=== PATIENT | female | born 1945 | race Caucasian/White ===

== ENCOUNTER 2016-11-18 11:12 | Emergency (ER) | payer MEDICARE, OTHER ==
[2016-11-18 11:30] VITALS: BP 143/83
[2016-11-18] MEDS ORDERED: ALBUTEROL SULFATE/IPRATROPIUM 3 ML NEBU IH ONE ×2 (12:10→12:17)
--- NOTE | 2016-11-18 12:16 | ERNOTE ---
Date of Service: 11/18/16 Time Seen by Provider: 11/18/16 11:39 Stated Complaint: LOSS OF BREATH X 2 MONTHS Presenting Symptoms:: cough Source: patient Exam Limitations: no limitations Immunizations: IMMUNIZATION HX Immunizations Up to Date Yes History of Influenza Vaccine Yes Hx Pneumococcal Vaccination Yes Allergies/Adverse Reactions: Allergies No Known Allergies Allergy (Verified 11/18/16 11:29) Home Medications: HOME MEDICATIONS Albuterol Sulfate [Ventolin HFA] 2 puff IH Q6H PRN 7 Days 11/18/16 [Last Taken Unknown] Amlodipine Besylate [Norvasc] 2.5 mg PO DAILY #30 tab 11/18/16 [Last Taken Unknown] Doxycycline Monohydrate 100 mg PO BID #20 tablet 11/18/16 [Last Taken Unknown] Prednisone [Deltasone] 20 mg PO BID #10 tablet 11/18/16 [Last Taken Unknown] - History of Present Ilness Narrative: Pt presents with chronic SOB as well as her finger tips turning blue in the cold. She has been having the finger tip problems for some time and it is much worse in the winter. Timing: constant, intermittent Severity: moderate Frequency/Possible Cause: Reports: chronic episodes Modifying Factors - Worsens: Reports: other - tobacco Associated Symptoms: Reports: cough, shortness of breath Review of Systems - Review of Systems Constitutional: Present: See HPI EYE: Present: no symptoms reported ENT: Present: no symptoms reported Respiratory: Present: shortness of breath, other - diminished breath sounds Cardiology: Present: no symptoms reported Gastrointestinal/Abdominal: Present: no symptoms reported Genitourinary: Present: no symptoms reported Musculoskeletal: Present: no symptoms reported Skin: Present: no symptoms reported Neurological: Present: no symptoms reported Endocrine: Present: no symptoms reported Hematologic/Lymphatic: Present: no symptoms reported, other - bluish finger tips Psych: Present: no symptoms reported - Patient's Past Medical History Patient History - Medical: Glaucoma Patient History - Cardiac/Respiratory: No pertinent hx, COPD Patient History - Cancer: No Hx of Cancer Patient History - Surgical Procedures: Cataracts - Social History Smoking Status: Current every day smoker Have you smoked in the past 12 months: Yes - Immunizations Immunizations Up to Date: Yes Hx Pneumococcal Vaccination: Yes History of Influenza Vaccine: Yes Physical Exam - Physical Exam General Appearance: Present: wd/wn, alert, mild distress Eye Exam: Normal inspection: bilateral, PERRL: bilateral Ears, Nose, Throat: Present: normal ENT inspection, hearing grossly normal, normal pharynx Neck: Present: normal inspection, nontender Respiratory: Present: no accessory muscle use, chest nontender, decreased breath sounds Cardiovascular/Chest: Present: regular rate, rhythm, no murmur, normal peripheral pulses Gastrointestinal/Abdominal: Present: normal bowel sounds, nontender, nondistended, soft, no organomegaly Rectal Exam: Present: deferred Back Exam: Present: normal inspection, normal range of motion Extremity Exam: Present: no edema, normal range of motion, other - bluish finger tips Neurological Exam: Present: alert, oriented, normal mood/affect Skin Exam: Present: normal color, warm/dry Lymphatic Exam: Present: no adenopathy ED Progress - Vital Signs Patient's Vital Signs:: I have reviewed the patient's vital signs. Vital Signs: Vital Signs 11/18/16 11:26 Temperature 36.6 C Pulse Rate 88 Respiratory 10 L Rate Blood Pressure 143/83 O2 Sat by Pulse 98 Oximetry - X-Ray X-Ray #1 X-Ray: chest Interpretation: Interp. by me - Progress/Reassessment Chief Complaint: Upper Respiratory Symptoms Progress:: Improved - Transfer of Care Expected Disposition: Discharge Plan - Plan Plan: Nice discussion with the patient regarding both COPD and Raynauds. Pt appeared to understand. Departure - Departure Clinical Impression: COPD (chronic obstructive pulmonary disease) with chronic bronchitis Raynauds disease Qualifiers: Raynaud?s-associated gangrene presence: without gangrene Qualified Code(s): I73.00 - Raynaud's syndrome without gangrene Disposition: Home self-care Instructions: Chronic Obstructive Pulmonary Disease Exacerbation, [id number] , Acute Bronchitis, [id number], Raynaud Phenomenon Referrals: Lili Mix MD [Primary Care Provider] - Prescriptions: Albuterol Sulfate [Ventolin HFA] 2 puff IH Q6H PRN 7 Days PRN Reason: Wheezing Amlodipine Besylate [Norvasc] 2.5 mg PO DAILY #30 tab Doxycycline Monohydrate 100 mg PO BID #20 tablet Prednisone [Deltasone] 20 mg PO BID #10 tablet
== END 2016-11-18 13:40 | disposition home or self-care (01) ==
LOC: ER 11:12
DX: J44.1 Chronic obstructive pulmonary disease with (acute) exacerbation (principal); Z72.0 Tobacco use; I73.00 Raynaud's syndrome without gangrene

== ENCOUNTER 2020-12-26 10:06 | Observation (INO) ==
[2020-12-26] MEDS ORDERED: ALBUTEROL SULFATE/IPRATROPIUM 3 ML NEBU IH ONE (10:20)
[2020-12-26] MEDS ORDERED: ALBUTEROL SULFATE 2.5 MG/0.5 ML VIAL.NEB IH ONE ×3 (10:20→17:48)
--- NOTE | 2020-12-26 10:26 | ERNOTE ---
Dyspnea - Date Date of Service: 12/26/20 - General Presenting Symptoms: shortness of breath Time Seen by Provider: 12/26/20 10:12 Source: patient Exam Limitations: no limitations - Immun/Allergies/Home Medications Immunizations: IMMUNIZATION HX Immunizations Up to Date Yes History of Influenza Vaccine Yes Hx Pneumococcal Vaccination Yes Allergies/Adverse Reactions: Allergies No Known Allergies Allergy (Verified 03/18/20 14:02) Home Medications: HOME MEDICATIONS Albuterol Sulfate [Ventolin HFA] 2 puff INHALATION Q6H PRN 7 Days inhaler 11/18/16 [Last Taken Unknown] Amlodipine Besylate [Norvasc] 2.5 mg PO DAILY #30 tab 11/18/16 [Last Taken Unknown] Albuterol Sulfate [Albuterol Sulfate 2.5 MG/0.5ML] 1 vial IH Q4H PRN 12/26/20 [Last Taken Unknown] Brimonidine Tartrate [Alphagan P 0.1% Ophthalmic Solution] 5 ml OP BID 12/26/20 [Last Taken Unknown] Latanoprost/Pf [Latanoprost 0.005% Eye Drop] 1 drp EACHEYE HS 12/26/20 [Last Taken Unknown] Polyethylene Glycol 400 [Blink Tears] 15 ml OP TID 12/26/20 [Last Taken Unknown] - History of Present Illness Narrative: Patient presents to the ED for SOB. EMS called as patient was very SOB this am, by report RA sats in the mid 80s. Given Solumedrol 125mg IV and albuterol. She states she feels slightly improved. She has chronic SOB but SOB increasing for the last week especially. Some sputum production. No calf pain or leg swelling. No CP. 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, paramedics Initiating event: Reports: unknown Frequency of episodes: Reports: frequent episodes Modifying Factors - (Improves): Reports: albuterol Modifying Factors (Worsens): Reports: activity Associated Symptoms-Dyspnea: Denies: fever/chills, chest pain/discomfort, leg/calf pain, ankle/leg swelling Prior Treatment: Denies: recently seen Review of Systems - Review of Systems Constitutional: Absent: fever EYE: Present: no symptoms reported ENT: Present: no symptoms reported Respiratory: Present: shortness of breath Cardiology: Absent: chest pain Gastrointestinal/Abdominal: Absent: abdominal pain Genitourinary: Absent: dysuria All Other Systems: All systems neg except as marked Medical History (Last Reviewed 12/26/20 @ 10:24 by Geronimo Mason MD) COPD (chronic obstructive pulmonary disease) with chronic bronchitis (Acute) Raynauds disease (Acute) Surgical History: Surgical History (Last Reviewed 12/26/20 @ 10:24 by Geronimo Mason MD) H/O section (Acute) Family History: Family History (Last Reviewed 12/26/20 @ 10:24 by Geronimo Mason MD) Mother Hypercholesterolemia Alzheimers disease Hypertension Father Heart disease Social History: (Last Reviewed 12/26/20 @ 10:24 by Geronimo Mason MD) Social History: senior care: No Marital status: / lives independently: Yes household members: none number of children: 1 current occupational status: retired Highest level of school completed/degree received: high school graduate Service: No Tobacco: Smoking Status: Current every day smoker second hand exposure: Yes Alcohol: alcohol intake: never Substance Use: substance use type: does not use Dietary Habits: caffeine: No Exercise: Physical activity functional status: assisted ambulation Physical Exam - Physical Exam General Appearance: Present: alert, moderate distress Head Exam: Present: normal inspection, no evidence of injury Eye Exam: Normal inspection: bilateral, PERRL: bilateral Ears, Nose, Throat: Present: normal ENT inspection Neck: Present: normal inspection Respiratory: Present: respiratory distress, wheezing. Absent: chest tenderness, stridor Cardiovascular/Chest: Present: normal peripheral pulses, tachycardia Gastrointestinal/Abdominal: Present: normal bowel sounds, nontender, soft Back Exam: Absent: CVA tenderness (R), CVA tenderness (L) Extremity Exam: Present: normal range of motion Neurological Exam: Present: alert, no motor/sensory deficits Skin Exam: Present: normal color, warm/dry Progress - Results and Orders Patient's Lab Results:: I have reviewed the patient's lab results. - Vital Signs Patient's Vital Signs:: I have reviewed the patient's vital signs. Vital Signs: Vital Signs 12/26/20 10:06 Temperature 37.2 C Pulse Rate 115 H Respiratory Rate 31 H Blood Pressure 152/74 H O2 Sat by Pulse Oximetry 93 - EKG EKG #1 EKG read: Interp. by me EKG Comments: Sinus tachycardia rate 113. Non-specific ST/T wave changes, no STEMI noted. - X-Ray X-Ray #1 X-Ray: chest Interpretation: Interp. by me X-ray Comments: I personally reviewed CXR images, no acute process. No real time radiology reads. - Progress/Reassessment Chief Complaint: Dyspnea Progress Note-Subjective: 12/26/20 12:12 Patient given continuous neb for 1 hour and was improved but still had some wheezes. She will require admission. She is agreeable to this. I diuscssed the case with Dr Martin who will admit. Hypoxia noted, on oxygen. Persistent wheezes. Departure Clinical Impression: Acute hypoxemic respiratory failure, COPD exacerbation - Departure Disposition: Still a patient Condition: Fair Referrals: Lili Mix MD [Primary Care Provider] -
[2020-12-26 10:44] LABS: Hematocrit 39.3 % (37.0-47.0); Hemoglobin 12.5 gm/dL (12.5-16.0); Mean Cell Volume 93.6 fl (78-100); Mean Corpuscular Hemoglobin 29.8 pg (27-31); Mean Corpuscular Hgb Conc 31.8 g/dl (32-36); Mean Platelet Volume 9.5 fl (8-12.5); Neutrophil # 9.9 K/mm3 (1.3-6.0); Platelet Count 304 K/mm3 (150-450); Red Cell Distribution Width 14.3 % (11.5-14.0); White Blood Count 12.2 K/mm3 (4.0-10.5)
[2020-12-26 11:05] LABS: ALT 23 U/L (19-67); AST 15 U/L (0-48); Albumin * 2.6 gm/dl (3.4-5.0); Alkaline Phosphatase * 93 U/L (50-170); Anion Gap 18.2 mmol/L (6.8-13.8); BNP * 97 pg/mL (5-325); BUN/Creatinine Ratio 30.4 (9.0-21.6); Bilirubin, Total 0.8 mg/dL (0.0-1.1); Blood Urea Nitrogen 14 mg/dL (3-23); Ca. Corrected For Albumin 9.7 mg/dL (8.4-10.2); Calcium * 8.9 mg/dL (7.9-10.9); Carbon Dioxide 24.5 mmol/L (24-32.6); Chloride 99 mmol/L (97-106); Glucose * 141 mg/dL (70-110); Potassium 3.7 mmol/L (3.4-4.6); Sodium 138 mmol/L (132-142); Total Protein 6.9 gm/dL (6.2-8.2); Troponin I Less than 0.017 ng/mL (0.00-0.10)
[2020-12-26] MEDS ORDERED: ALBUTEROL SULFATE 2.5 MG/0.5 ML VIAL.NEB IH SCH (11:30)
--- NOTE | 2020-12-26 15:17 | HP ---
Chief Complaint - Chief Complaint Date of Service: 12/26/20 Time of Service: 14:50 Chief Complaint: shortness of breath History of Present Illness: Danni Concepcion is a 75-year-old white female patient of Dr. Lili Mix with past medical history of COPD, chronic smoking, Raynaud's phenomenon, glaucoma, who was admitted today on 12/26/2020 because of increasing shortness of breath. The patient for the last 2 days has been having increasing shortness of breath associated with wheezing and coughing productive of whitish to yellowish phlegm. She said that for the last 3 months since September she has been having on and off exacerbation of her COPD and has been on antibiotics and prednisone on and off. She stopped smoking 5 days ago. She has been smoking for the last 50 years. This morning EMS was called because the patient was very short of breath saturating only in her mid 80s at room air. She denies any fever or chills, chest pain or back pain, orthopnea or leg swelling. EMS gave her IV Solu-Medrol and albuterol. In the emergency room patient was put on a continuous nebulizer which improved her oxygenation. She was then admitted for observation and continuance of her breathing treatments. Medical History (Last Reviewed 12/26/20 @ 10:31 by Ej Contreras RN) COPD (chronic obstructive pulmonary disease) with chronic bronchitis (Chronic) Raynauds disease (Chronic) Surgical History: Surgical History (Last Reviewed 12/26/20 @ 10:31 by Ej Contreras RN) H/O section (Acute) Family History: Family History (Last Reviewed 12/26/20 @ 10:31 by Ej Contreras RN) Mother Hypertension Alzheimers disease Hypercholesterolemia Father Heart disease Social History: (Last Reviewed 12/26/20 @ 10:31 by Ej Contreras RN) Social History: prison: No Marital status: / lives independently: Yes household members: none number of children: 1 current occupational status: retired Highest level of school completed/degree received: high school graduate Service: No Tobacco: Smoking Status: Current every day smoker second hand exposure: Yes Alcohol: alcohol intake: never Substance Use: substance use type: does not use Dietary Habits: caffeine: No Exercise: Physical activity functional status: assisted ambulation Review Of Systems (GEN) - Review of Systems Generalized/Overall Review: Absent: Chills, Fever EENTM: Absent: Blurred Vision Respiratory: Present: Cough, Shortness of Breath, Wheezing Cardiac: Absent: Chest Pain, Edema, Palpitations Abdominal: Absent: Nausea, Vomiting, Abdominal Pain Genitourinary: Absent: Urgency, Frequency Musculoskeletal: Absent: Joint Pain, Back Pain Neurological: Absent: Anxiety, Depressed Skin: Absent: Lesions, Rash Endocrine: Absent: Intolerance to Cold, Intolerance to Heat Misc: All systems neg except as marked Immunizations: IMMUNIZATION HX Immunizations Up to Date Yes History of Influenza Vaccine Yes Hx Pneumococcal Vaccination Yes Allergies/Adverse Reactions: Allergies Allergy/AdvReac Type Severity Reaction Status Date / Time No Known Allergies Allergy Verified 03/18/20 14:02 Home Medications: HOME MEDICATIONS Albuterol Sulfate [Ventolin HFA] 2 puff INHALATION Q6H PRN 7 Days inhaler 11/18/16 [Last Taken Unknown] Albuterol Sulfate [Albuterol Sulfate 2.5 MG/0.5ML] 1 vial IH Q4H PRN 12/26/20 [Last Taken Unknown] Amlodipine Besylate [Norvasc] 2.5 mg PO HS 12/26/20 [Last Taken 12/25/20 21:00] Brimonidine Tartrate [Alphagan P 0.1% Ophthalmic Solution] 5 ml OP BID 12/26/20 [Last Taken 12/26/20 09:00] Latanoprost/Pf [Latanoprost 0.005% Eye Drop] 1 drp EACHEYE HS 12/26/20 [Last Taken 12/25/20 21:00] Polyethylene Glycol 400 [Blink Tears] 15 ml OP TID 12/26/20 [Last Taken 12/26/20 09:00] Exam - Exam Vital Signs: Vital Signs - Last Taken Temp 36.6 C 12/26/20 13:31 Pulse 119 H 12/26/20 13:31 Resp 35 H 12/26/20 13:31 BP 133/75 12/26/20 13:31 Pulse Ox 99 12/26/20 13:31 Constitutional: Present: Alert, Oriented x3, Cooperative, Elderly, Thin and frail ENT Exam: Present: hearing grossly normal Eye Exam: bilateral eye: normal inspection, PERRL, EOMI Neck: Present: supple. Absent: lymphadenopathy (R), lymphadenopathy (L) Respiratory: Present: decreased breath sounds, wheezing, No rales Cardiovascular/Chest: Present: regular rate, rhythm, no JVD, no murmur Abdomen: Present: Normal bowel sounds, soft, nontender, nondistended Extremity: Present: no calf tenderness. Absent: lower extremity edema Diagnostic Studies: Abnormal Lab Results 12/26/20 12/26/20 12/26/20 Range/Units 10:33 10:33 10:40 WBC 12.2 H (4.0-10.5) K/mm3 MCHC 31.8 L (32-36) g/dl RDW 14.3 H (11.5-14.0) % Immature Gran % (Auto) 0.60 H (0.001-0.429) % Immature Gran # (Auto) 0.07 H (0.000-0.0310) K/mm3 Neutrophils % 81.0 H (42-75.0) % Lymphocytes % 9.3 L (20-51) % Neutrophils # 9.9 H (1.3-6.0) K/mm3 Lymphocytes # 1.13 L (1.5-3.5) k/mm3 pO2 49.6 L (83.0-108.0) mmHg ABG O2 Sat (Measured) 87.0 L (94.0-98.0) % Anion Gap 18.2 H (6.8-13.8) mmol/L Est GFR (Non-Af Amer) 142 H (60-130) mL/min BUN/Creatinine Ratio 30.4 H (9.0-21.6) Random Glucose 141 H (70-110) mg/dL Albumin 2.6 L (3.4-5.0) gm/dl Laboratory Results WBC 12.2 K/mm3 (4.0-10.5) H 12/26/20 10:33 RBC 4.20 M/mm3 (4.2-5.4) 12/26/20 10:33 Hgb 12.5 gm/dL (12.5-16.0) 12/26/20 10:33 Hct 39.3 % (37.0-47.0) 12/26/20 10:33 MCV 93.6 fl (78-100) 12/26/20 10:33 MCH 29.8 pg (27-31) 12/26/20 10:33 MCHC 31.8 g/dl (32-36) L 12/26/20 10:33 RDW 14.3 % (11.5-14.0) H 12/26/20 10:33 Plt Count 304 K/mm3 (150-450) 12/26/20 10:33 MPV 9.5 fl (8-12.5) 12/26/20 10:33 Immature Gran % (Auto) 0.60 % (0.001-0.429) H 12/26/20 10:33 Immature Gran # (Auto) 0.07 K/mm3 (0.000-0.0310) H 12/26/20 10:33 Neutrophils % 81.0 % (42-75.0) H 12/26/20 10:33 Lymphocytes % 9.3 % (20-51) L 12/26/20 10:33 Monocytes % 8.2 % (0.0-9) 12/26/20 10:33 Eosinophils % 0.5 % (0.0-3.0) 12/26/20 10:33 Basophils % 0.4 % (0.0-1.0) 12/26/20 10:33 Nucleated RBC % 0.0 k/mm3 (0-1) 12/26/20 10:33 Neutrophils # 9.9 K/mm3 (1.3-6.0) H 12/26/20 10:33 Lymphocytes # 1.13 k/mm3 (1.5-3.5) L 12/26/20 10:33 Monocytes # 1.0 k/mm3 (0.0-1.0) 12/26/20 10:33 Eosinophils # 0.1 k/mm3 (0.0-0.7) 12/26/20 10:33 Absolute Basophils 0.1 k/mm3 (0.0-0.1) 12/26/20 10:33 pCO2 32.0 mmHg (32.0-45.0) 12/26/20 10:40 pO2 49.6 mmHg (83.0-108.0) L 12/26/20 10:40 HCO3 21.3 mmol/L (21.0-28.0) 12/26/20 10:40 Total CO2 22.3 mmol/L (19.0-24.0) 12/26/20 10:40 Base Excess -2.0 mmol/L (-2.0-3.0) 12/26/20 10:40 ABG pH 7.44 (7.35-7.45) 12/26/20 10:40 ABG O2 Sat (Measured) 87.0 % (94.0-98.0) L 12/26/20 10:40 Sodium 138 mmol/L (132-142) 12/26/20 10:33 Plasma Sodium 139 mmol/L (130-142) 12/26/20 10:33 Potassium 3.7 mmol/L (3.4-4.6) 12/26/20 10:33 Chloride 99 mmol/L (97-106) 12/26/20 10:33 Carbon Dioxide 24.5 mmol/L (24-32.6) 12/26/20 10:33 Anion Gap 18.2 mmol/L (6.8-13.8) H 12/26/20 10:33 BUN 14 mg/dL (3-23) 12/26/20 10:33 Creatinine 0.46 mg/dL (0.4-1.4) 12/26/20 10:33 Est GFR (Non-Af Amer) 142 mL/min (60-130) H 12/26/20 10:33 BUN/Creatinine Ratio 30.4 (9.0-21.6) H 12/26/20 10:33 Random Glucose 141 mg/dL (70-110) H 12/26/20 10:33 Calcium 8.9 mg/dL (7.9-10.9) 12/26/20 10:33 Calcium Adj for Albumin 9.7 mg/dL (8.4-10.2) 12/26/20 10:33 Total Bilirubin 0.8 mg/dL (0.0-1.1) 12/26/20 10:33 AST 15 U/L (0-48) 12/26/20 10:33 ALT 23 U/L (19-67) 12/26/20 10:33 Alkaline Phosphatase 93 U/L (50-170) 12/26/20 10:33 Troponin I Less than 0.017 ng/mL (0.00-0.10) 12/26/20 10:33 B-Natriuretic Peptide 97 pg/mL (5-325) 12/26/20 10:33 Total Protein 6.9 gm/dL (6.2-8.2) 12/26/20 10:33 Albumin 2.6 gm/dl (3.4-5.0) L 12/26/20 10:33 SARS-CoV-2 (PCR) Not detected (NotDetected) 12/26/20 10:50 Assessment/Plan - Narrative Narrative: Danni was admitted for acute respiratory distress with acute hypoxic respiratory failure secondary to acute COPD exacerbation. We will continue with her IV S mia-Medrol, antibiotics and breathing treatments. We will defer from giving her DuoNeb as the ipratropium component is not indicated for angle-closure glaucoma. The patient thinks she has open angle glaucoma but is not sure. We will likely discharge her in the morning if her respiratory status improves. We will continue with her other home medications and eye drops. - Assessment/Plan (1) Acute hypoxemic respiratory failure Problem: Acute (2) COPD exacerbation Problem: Acute (3) COPD (chronic obstructive pulmonary disease) with chronic bronchitis Problem: Chronic (4) Raynauds disease Problem: Chronic Qualifiers: Raynaud?s-associated gangrene presence: without gangrene Qualified Code(s): I73.00 - Raynaud's syndrome without gangrene (5) Glaucoma Problem: Chronic Qualifiers: Glaucoma type: unspecified Laterality: bilateral Qualified Code(s): H40.9 - Unspecified glaucoma
[2020-12-26] MEDS ORDERED: AZITHROMYCIN 250 MG TABLET PO ONE (15:23)
[2020-12-26] MEDS: METHYLPREDNISOLONE SOD SUCC/PF 40 MG/ML VIAL IV SCH ×2 (16:21→20:58)
[2020-12-26] MEDS: ALBUTEROL SULFATE 2.5 MG/0.5 ML VIAL.NEB IH SCH ×2 (18:06→22:00)
[2020-12-26] MEDS ORDERED: amLODIPine BESYLATE 5 MG TABLET ONE (20:49)
[2020-12-26] MEDS ORDERED: LATANOPROST 25 DROP BTL EACHEYE SCH (21:00)
[2020-12-26] MEDS ORDERED: AMLODIPINE BESYLATE 2.5 MG TABLET PO SCH (21:00)
[2020-12-26] MEDS: BRIMONIDINE TARTRATE 50 DROP BTL EACHEYE SCH (21:00)
[2020-12-27] MEDS: ALBUTEROL SULFATE 2.5 MG/0.5 ML VIAL.NEB IH SCH ×3 (02:07→10:13)
[2020-12-27] MEDS: METHYLPREDNISOLONE SOD SUCC/PF 40 MG/ML VIAL IV SCH (02:36)
[2020-12-27] MEDS: BRIMONIDINE TARTRATE 50 DROP BTL EACHEYE SCH (04:41)
[2020-12-27 06:58] LABS: Hematocrit 38.7 % (37.0-47.0); Hemoglobin 12.6 gm/dL (12.5-16.0); Mean Cell Volume 91.3 fl (78-100); Mean Corpuscular Hemoglobin 29.7 pg (27-31); Mean Corpuscular Hgb Conc 32.6 g/dl (32-36); Mean Platelet Volume 9.6 fl (8-12.5); Neutrophil # 9.7 K/mm3 (1.3-6.0); Neutrophil % 94.5 % (42-75.0); Platelet Count 319 K/mm3 (150-450); Red Blood Count 4.24 M/mm3 (4.2-5.4); Red Cell Distribution Width 14.1 % (11.5-14.0); White Blood Count 10.3 K/mm3 (4.0-10.5)
[2020-12-27 07:00] LABS: Anion Gap 14.3 mmol/L (6.8-13.8); BUN/Creatinine Ratio 33.3 (9.0-21.6); Calcium * 9.4 mg/dL (7.9-10.9); Carbon Dioxide 26.4 mmol/L (24-32.6); Potassium 3.7 mmol/L (3.4-4.6)
--- NOTE | 2020-12-27 08:43 | DS ---
(1) Acute hypoxemic respiratory failure Problem: Resolved (2) COPD exacerbation Problem: Resolved (3) COPD (chronic obstructive pulmonary disease) with chronic bronchitis Problem: Chronic (4) Raynauds disease Problem: Chronic Qualifiers: Raynaud?s-associated gangrene presence: without gangrene Qualified Code(s): I73.00 - Raynaud's syndrome without gangrene (5) Glaucoma Problem: Chronic Qualifiers: Glaucoma type: unspecified Laterality: bilateral Qualified Code(s): H40.9 - Unspecified glaucoma Date of Discharge:: 12/27/20 Hospital Course: Danni Concepcion is a 75-year-old white female patient of Dr. Lili Mix with past medical history of COPD, chronic smoking, Raynaud's phenomenon, glaucoma, who was admitted today on 12/26/2020 because of increasing shortness of breath. The patient for the last 2 days has been having increasing shortness of breath associated with wheezing and coughing productive of whitish to yellowish phlegm. She said that for the last 3 months since September she has been having on and off exacerbation of her COPD and has been on antibiotics and prednisone on and off. She stopped smoking 5 days ago. She has been smoking for the last 50 years. This morning EMS was called because the patient was very short of breath saturating only in her mid 80s at room air. She denies any fever or chills, chest pain or back pain, orthopnea or leg swelling. EMS gave her IV Solu-Medrol and albuterol. In the emergency room patient was put on a continuous nebulizer which improved her oxygenation. She was then admitted for observation and continuance of her breathing treatments and Iv Solumedrol. We started on Azithromycin.She is clinically stable to be discharged today. She is 96% on RA. She will likely need an inhaled corticosteroids and long acting LABA or LAMA ( if not contraindicated for her type of glaucoma?). She was told the other main intervention was for her to continue to stop smoking. She says she stopped smoking 5 days ago. Procedures Performed: none Results and Findings: Lab Pending Results 12/26/20 10:33: WBC 12.2 H, RBC 4.20, Hgb 12.5, Hct 39.3, MCV 93.6, MCH 29.8, MCHC 31.8 L, RDW 14.3 H, Plt Count 304, MPV 9.5, Immature Gran % (Auto) 0.60 H, Immature Gran # (Auto) 0.07 H, Neutrophils % 81.0 H, Lymphocytes % 9.3 L, Monocytes % 8.2, Eosinophils % 0.5, Basophils % 0.4, Nucleated RBC % 0.0, Neutrophils # 9.9 H, Lymphocytes # 1.13 L, Monocytes # 1.0, Eosinophils # 0.1, Absolute Basophils 0.1 12/26/20 10:33: Sodium 138, Plasma Sodium 139, Potassium 3.7, Chloride 99, Carbon Dioxide 24.5, Anion Gap 18.2 H, BUN 14, Creatinine 0.46, Est GFR (Non-Af Amer) 142 H, BUN/Creatinine Ratio 30.4 H, Random Glucose 141 H, Calcium 8.9, Calcium Adj for Albumin 9.7, Total Bilirubin 0.8, AST 15, ALT 23, Alkaline Phosphatase 93, Troponin I Less than 0.017, B-Natriuretic Peptide 97, Total Protein 6.9, Albumin 2.6 L 12/26/20 10:40: pCO2 32.0, pO2 49.6 L, HCO3 21.3, Total CO2 22.3, Base Excess - 2.0, ABG pH 7.44, ABG O2 Sat (Measured) 87.0 L 12/26/20 10:50: SARS-CoV-2 (PCR) Not detected 12/27/20 06:45: WBC 10.3, RBC 4.24, Hgb 12.6, Hct 38.7, MCV 91.3, MCH 29.7, MCHC 32.6, RDW 14.1 H, Plt Count 319, MPV 9.6, Immature Gran % (Auto) 0.50 H, Immature Gran # (Auto) 0.05 H, Neutrophils % 94.5 H, Lymphocytes % 3.4 L, Monocytes % 1.5, Eosinophils % 0.0, Basophils % 0.1, Nucleated RBC % 0.0, Neutrophils # 9.7 H, Lymphocytes # 0.35 L, Monocytes # 0.2, Eosinophils # 0.0, Absolute Basophils 0.0 12/27/20 06:45: Sodium 138, Plasma Sodium 139, Potassium 3.7, Chloride 101, Carbon Dioxide 26.4, Anion Gap 14.3 H, BUN 15, Creatinine 0.45, Est GFR (Non-Af Amer) 145 H, BUN/Creatinine Ratio 33.3 H, Random Glucose 182 H, Calcium 9.4 Discharge Location: Home Disposition: Home self-care Condition: Fair Discharge Activity: Activity as tolerated Discharge Diet: General/regular food Referrals: Lili Mix MD [Primary Care Provider] - Additional Patient Instructions (free text): Follow up with PCP- Dr. Brea Paige in 1 week. Prescriptions (Any new or edited meds): predniSONE [Prednisone] 20 mg PO DAILY #7 tab Transmission Status: Pending to [facility] Azithromycin [Zithromax] 250 mg PO DAILY 4 Days #4 tab Transmission Status: Pending to [facility] Complete Home Medications List: Complete Home Medication List: Albuterol Sulfate [Ventolin HFA] 2 puff INHALATION Q6H PRN 7 Days inhaler 11/18 Albuterol Sulfate [Albuterol Sulfate 2.5 MG/0.5ML] 1 vial IH Q4H PRN 12/26/20 Amlodipine Besylate [Norvasc] 2.5 mg PO HS 12/26/20 Brimonidine Tartrate [Alphagan-P 0.1% Ophthalmic Solution] 5 ml OP BID 12/26/20 Latanoprost/Pf [Latanoprost 0.005% Eye Drop] 1 drp EACHEYE HS 12/26/20 Polyethylene Glycol 400 [Blink Tears] 15 ml OP TID 12/26/20 Azithromycin [Zithromax] 250 mg PO DAILY 4 Days #4 tab 12/27/20 predniSONE [Prednisone] 20 mg PO DAILY #7 tab 12/27/20 Forms: Patient Portal Registration
[2020-12-27] MEDS ORDERED: predniSONE 20 MG TABLET PO SCH (09:00)
[2020-12-27] MEDS ORDERED: AZITHROMYCIN 250 MG TABLET PO SCH (09:00)
[2020-12-27 12:18] VITALS: BP 127/69
== END 2020-12-27 11:50 | disposition home or self-care (01) ==
LOC: ER 10:06 → MS 10:06
PROVIDERS: ADMIT Internal Medicine; ATTEND Internal Medicine